=== PATIENT | male | born 1995 | race Caucasian/White ===

== ENCOUNTER 2021-07-31 15:57 | Emergency (ER) | payer OTHER ==
[~2021-07-31] VITALS: Ht 182.9 cm; Wt 124.7 kg
[2021-07-31 16:49] LABS: URINE BILIRUBIN NEGATIVE (Negative); URINE BLOOD NEGATIVE (Negative); URINE CLARITY CLEAR; URINE COLOR YELLOW; URINE GLUCOSE-RANDOM* NEGATIVE (Negative); URINE KETONES NEGATIVE (Negative); URINE LEUKOCYTES-REFLEX NEGATIVE (Negative); URINE NITRITE-REFLEX NEGATIVE (Negative); URINE PROTEIN (DIPSTICK) NEGATIVE (Negative); URINE UROBILINOGEN 0.2 E.U./dl (0.2-1.0)
[2021-07-31 17:15] LABS: ABSOLUTE NEUTROPHILS 8.6 thou/uL (1.4-8.2); BASOPHILS 0.2 % (0.0-2.0); HEMOGLOBIN 16.5 gm/dL (14.0-18.0); LYMPHOCYTES 10.4 % (24.0-44.0); MCH 29.4 pg (26.0-34.0); MCHC 34.4 g/dL (28.0-37.0); MCV 85.5 fL (80.0-100.0); MONOCYTES 2.8 % (1.0-8.0); PLATELET COUNT 280 thou/uL (150-400); POLYS 86.6 % (36.0-66.0); RBC 5.61 mil/uL (4.50-6.00); RDW 12.7 % (10.5-14.5); WBC 9.9 thou/uL (4.0-11.0)
[2021-07-31 17:20] LABS: CALCIUM 8.8 mg/dL (8.5-10.1); CREATININE 1.2 mg/dL (0.7-1.3); POTASSIUM 3.8 mmol/L (3.5-5.1)
[2021-07-31 17:30] LABS: ALBUMIN 4.5 g/dL (3.4-5.0); TOTAL BILIRUBIN 0.3 mg/dL (0.2-1.0); TOTAL PROTEIN 8.4 g/dL (6.4-8.2)
[2021-07-31] MEDS ORDERED: VISTARIL 25 MG25 M1 PO (21:27)
[2021-07-31 22:06] VITALS: BP 134/89
--- NOTE | 2021-08-02 07:38 | EKG ---
[place] [address] [facility] [employer] [place] [address] ELECTROCARDIOGRAM REPORT Name: JOSEFA,MONIQUEBirgit Room #: DEP [id number] Admission: 07/31/21 Attend Phys: Discharge: 07/31/21 Date of : [birth year] Report #: [id number] [facility] ED Test Date: 2021-07-31 Test Time: 16:02:48 Pat Name: MAEGAN RIVERO Department: Room: Gender: Package Liner: DEWEY : 1995 Requested By: Rich Ring Order Number: [id number] MD: Lucho Monroe Measurements Intervals Mathews Rate: 107 P: 55 DC: 134 QRS: 44 QRSD: 90 T: 49 QT: 310 QTc: 414 Interpretive Statements Sinus tachycardia Atrial premature complex Probable left atrial enlargement Borderline T wave abnormalities No previous ECG available for comparison Electronically Signed On 08-02-2021 7:37:50 [employer]MING MACHINE SETTER by Lucho Monroe [email or web address] <ELECTRONICALLY SIGNED> By: Lucho Monroe MD, [facility] 08/02/21 0737 1602 1602 Lucho Monroe MD, FACC /EPI
== END 2021-07-31 22:07 | disposition home or self-care (01) ==
LOC: ER 15:57
PROVIDERS: Emergency Medicine
DX: F41.9 Anxiety disorder, unspecified (principal); Z20.822 Contact with and (suspected) exposure to COVID-19; R00.0 Tachycardia, unspecified; R07.89 Other chest pain; R42 Dizziness and giddiness; R06.02 Shortness of breath; Z88.6 Allergy status to analgesic agent; Z88.0 Allergy status to penicillin